=== PATIENT | female | born 1955 | race Caucasian/White ===

== ENCOUNTER 2019-02-09 11:59 | Outpatient (REF) | payer MEDICARE, BC, SELFPAY | END 2019-02-09 12:19 | LOC: NCHCN 11:59 | PROVIDERS: PCP Physician Assistant; Visit Provider Nurse Practitioner Family | DX: R30.0 Dysuria (principal) | CPT/HCPCS: 87077; 87086; 87186 ==

== ENCOUNTER 2020-04-21 13:47 | Outpatient (REF) | payer MEDICARE, BC, SELFPAY ==
[2020-04-21 19:46] LABS: HCT 42.9 % (36.0-46.0); HGB 14.4 g/dL (12.0-15.5); Mean Corp. HGB Concentration 33.6 g/dL (32.0-36.0); Mean Corpuscular Hemoglobin 28.8 pg (27.0-33.0); Mean Corpuscular Volume 85.8 fL (80-95); Mean Platelet Volume 10.3 fL (8.0-11.0); Platelet Count 277 x1000/uL (130-400); White Blood Cell Count 5.88 k/cumm (4.4-10.8)
[2020-04-21 20:18] LABS: ALT 38 U/L (14-59); Anion Gap 9.9 mmol/L (3-11); BUN 14 mg/dL (7-18); CO2 27.1 mmol/L (21.0-32.0); CREATININE 0.81 mg/dL (0.55-1.02); Calcium 9.4 mg/dL (8.5-10.1); Chloride 102 mmol/L (98-107); Glucose 106 mg/dL (74-106); LDL CHOLESTEROL 157 mg/dL (<100); Sodium 139 mmol/L (136-145)
== END 2020-04-21 14:07 ==
LOC: NCHCN 13:47
PROVIDERS: PCP Physician Assistant; Visit Provider Internal Medicine
DX: I10 Essential (primary) hypertension (principal); E66.9 Obesity, unspecified
CPT/HCPCS: 80048; 83721; 85027; 84460

== ENCOUNTER 2021-01-02 10:19 | Outpatient (REF) | payer MEDICARE, BC, SELFPAY ==
[2021-01-02 15:49] LABS: Hemoglobin A1C 5.9 % (<5.7)
== END 2021-01-02 10:20 | disposition home or self-care (01) ==
LOC: NCHCN 10:19
PROVIDERS: PCP Physician Assistant; Visit Provider Internal Medicine
DX: R73.03 Prediabetes (principal)
CPT/HCPCS: 83036

== ENCOUNTER 2021-04-07 15:23 | Outpatient (REF) | payer MEDICARE, BC, SELFPAY ==
[2021-04-07 19:04] LABS: ALT 34 U/L (14-59); Anion Gap 11.4 mmol/L (3-11); BUN 13 mg/dL (7-18); CO2 26.6 mmol/L (21.0-32.0); CREATININE 0.7 mg/dL (0.55-1.02); Calcium 9.4 mg/dL (8.5-10.1); Calculated LDL 108 mg/dL (<100); Chloride 102 mmol/L (98-107); Cholesterol 231 mg/dL (<200); Glucose 97 mg/dL (74-106); HDL Cholesterol 83 mg/dL (40-60); Potassium 4.1 mmol/L (3.5-5.1); Sodium 140 mmol/L (136-145); TSH 1.08 uIU/mL (0.36-3.74); Triglyceride 203 mg/dL (<150)
== END 2021-04-07 15:24 | disposition home or self-care (01) ==
LOC: NCHCN 15:23
PROVIDERS: PCP Physician Assistant; Visit Provider Internal Medicine
DX: I10 Essential (primary) hypertension (principal); R73.03 Prediabetes; E66.9 Obesity, unspecified
CPT/HCPCS: 80048; 80061; 84443; 84460

== ENCOUNTER 2021-08-09 09:31 | Outpatient (REF) | payer MEDICARE, BC, SELFPAY ==
[2021-08-11 14:23] LABS: COVID-19 RT-PCR UVMMC Result Negative (Negative)
== END 2021-08-09 09:32 | disposition home or self-care (01) ==
LOC: NCHCN 09:31
PROVIDERS: PCP Physician Assistant; Visit Provider Internal Medicine
DX: Z20.822 Contact with and (suspected) exposure to COVID-19 (principal)
CPT/HCPCS: U0003

== ENCOUNTER 2022-02-16 12:12 | Outpatient (REF) | payer OTHER, SELFPAY | END 2022-02-16 12:13 | disposition home or self-care (01) | LOC: NCHCN 12:12 | PROVIDERS: PCP Physician Assistant; Visit Provider Physician Assistant | DX: R35.0 Frequency of micturition (principal) | CPT/HCPCS: 87077; 87086; 87186 ==

== ENCOUNTER 2023-07-11 17:53 | Outpatient (REF) | payer OTHER, SELFPAY ==
[2023-07-11 20:10] LABS: ALT 37 U/L (14-59); AST 19 U/L (15-37); Albumin 4.1 g/dL (3.4-5.0); Alkaline Phosphatase 89 U/L (46-116); Anion Gap 12.2 mmol/L (3-11); BUN 12 mg/dL (7-18); Bilirubin, Total 0.4 mg/dL (0.2-1.0); CO2 22.8 mmol/L (21.0-32.0); CREATININE 0.8 mg/dL (0.55-1.02); Calcium 9.6 mg/dL (8.5-10.1); Chloride 101 mmol/L (98-107); Estimated GFR 79.71 (mL/min/1.73m2); Glucose 116 mg/dL (74-106); LDL CHOLESTEROL 118 mg/dL (<100); Potassium 3.8 mmol/L (3.5-5.1); Sodium 136 mmol/L (136-145); Total Protein 7.7 g/dL (6.4-8.2)
== END 2023-07-11 17:54 | disposition home or self-care (01) ==
LOC: NCHCN 17:53
PROVIDERS: PCP Physician Assistant; Visit Provider Physician Assistant
DX: E78.5 Hyperlipidemia, unspecified (principal); I10 Essential (primary) hypertension; R73.03 Prediabetes
CPT/HCPCS: 80053; 83721

== ENCOUNTER 2024-08-21 09:17 | Outpatient (REF) | payer OTHER, SELFPAY ==
--- OUTSIDE RECORDS SUMMARY | 2024-08-21 09:19 | XMS_ITS | Encounter Summary ---
Author Organization [facility] [place] [address] Care Team Providers Care Rocket Propellant Plant Supervisor Name Role Phone Misael Borges Primary Care Provider [phone] Reason for Visit * Reason Comments Annual Exam Encounter Details Date Type Department Care Team (Late st Contact Info) Description 11/23/2016 4:00 PM EST Office Visit Dermatology at [address] [phone] Avery Thacker MD [address] [facility] [place] [address] History of malignant melanoma; Nevus; Seborrheic keratosis Social History Tobacco Use Types Packs/Day Years Used Date Smoking Tobacco: Former Sex and Gender Information Value Date Recorded Sex Assigned at Not on file Gender Identity Not on file Sexual Orientation Not on file documented as of this encounter Progress Notes * Avery Thacker MD - 11/23/2016 4:00 PM EST PROBLEM: 1. F/u for yearly skin check up. 2. History of malignant melanoma, 0.32 mm Breslow depth, right upper back January 2006. 3. History of living in [place] for a number years with marked sun exposure history. Camille follows up and doing well. She is concerned about a lesion that was on her left upper arm, but now has fallen off. It was very dark and that concerned her. Physical examination reveals a pleasant, now 61-year-old woman who has no residual lesion on the left upper arm, who probably had a seborrheic keratosis, which has since desquamated. Examination of the face, the neck, the chest, the back, the hands and forearms, thighs and the calves, is benign. There is no evidence of any malignant lesions. A/P: 1. History of malignant melanoma right upper back January 2006, 0.32 mm Breslow depth. a. Patient congratulated about benign examination today. b. Recommended I continue seeing her on a yearly basis. c. Continue sun avoidance precautions. CC: Misael Borges PA-C. documented in this encounter Plan of Treatment Upcoming Encounters Date Type Department Care Team (Late st Contact Info) Description 08/10/2025 10:45 AM EST Office Visit Dermatology at [place] [address] [place] [address] Avery Thacker MD [address] [facility] [place] [address] documented as of this encounter Visit Diagnoses Diagnosis History of malignant melanoma Personal history of malignant melanoma of skin Nevus Benign neoplasm of skin, site unspecified Seborrheic keratosis Other seborrheic keratosis documented in this encounter Care Teams Rocket Propellant Plant Supervisor Relationship Specialty Start Date End Date Misael Borges PA [address] [place] [phone] PCP - General 04/04/15 11/28/17 documented as of this encounter
--- OUTSIDE RECORDS SUMMARY | 2024-08-21 09:19 | XMS_ITS | Encounter Summary ---
Author Organization [facility] [place] [address] Care Team Providers Care Paste Maker Name Role Phone Lazarus Washington MD Primary Care Provider [phone] Encounter Details Date Type Department Care Team (Late st Contact Info) Description 01/28/2006 Orders Only Dermatology at [address] [phone] Avery Thacker MD [address] [place] [address], [facility] [place] [address] Social History Tobacco Use Types Packs/Day Years Used Date Smoking Tobacco: Never Assessed Sex and Gender Information Value Date Recorded Sex Assigned at Not on file Gender Identity Not on file Sexual Orientation Not on file documented as of this encounter Plan of Treatment Upcoming Encounters Date Type Department Care Team (Late st Contact Info) Description 08/10/2025 10:45 AM EST Office Visit Dermatology at [address] [phone] Avery Thacker MD [address] [place] [address], [facility] [place] [address] documented as of this encounter Procedures Procedure Name Priority Date/Time Associated Diagnosis Comments SURGICAL PATHOLOGY REPORT Routine 01/28/2006 6:09 PM EDT documented in this encounter Results * Surgical Pathology Report (01/28/2006 6:09 PM EDT) Surgical Pathology Report [id number] ? Location: The signing pathologist has (i) examined the relevant preparation(s) for the specimen(s) and (ii) rendered or confirmed the diagnosis(es). . ?Pathology Surgical Pathology Final Report Clinical Information Specimen Submitted: A - (R) upper back excision. Clinical History: Atypical Nevus. Clinical Diagnosis: Atypical Nevus R/O MM Gross Description Labeled/Fixativ e: ? R upper back, formalin. Qty/Size/Weight : ?Single, 1.3 x 0.7 x 0.3 cm. Tissue Description: ?? Ellipse of garcia skin with a central 0.3 x 0.3-cm ?ovoid, symmetrical, garcia-brown macule. Sections/Proces sing: ??The specimen is inked and serially sectioned. ??The ?ends are submitted in (1); the remainder of the ?specimen submitted in (2). ??(T2) ??[facility] Microscopic Description Slides reviewed, microscopic description not recorded. Diagnosis Specimen: ? Skin of right upper back, excision. Histologic Type: ?Superficial spreading melanoma Ulceration: ? Absent Depth of Invasion: ?0.32 mm Marc's Level: ?II Regression: ? Present Vascular Invasion: ?Not identified Perineural Invasion: ?Not identified Microscopic Satellites: Not identified Associated Nevus: ? Present Margins: Peripheral Margins: ? Negative (approx. 2 mm from the lesion). Deep Margin: ?Negative Pathologic TNM Codes: ?? pT1a pNx pMx. CR-0 02/01/06 AEP 02/01/06 Verified by: ? Patito Sanchez MD ?Dermatopathol ogist ?(Electronic Signature) The attending pathologist whose signature appears on this report has reviewed all diagnostic slides and has edited the gross and/or microscopic portion of the report in rendering the final pathologic diagnosis. Comment Dr. Tommy Castañeda and Dr. Carlos Ovalle also examined the case and concur with the interpretation. JACKIE BLACK 01/28/2006 6:09 PM EDT Avery Thacker MD PATHOLOGY/CYTOLOGY O RDERAANNA Performing Organization Address City/State/[facility] Co de Phone Number JACKIE BLACK documented in this encounter Visit Diagnoses Not on filedocumented in this encounter Care Teams Paste Maker Relationship Specialty Start Date End Date Lazarus Washington MD [address] [place] [phone] PCP - General General Internal Medicine 11/29/17 documented as of this encounter
--- OUTSIDE RECORDS SUMMARY | 2024-08-21 09:19 | XMS_ITS | Encounter Summary ---
Author Organization [facility] Address [facility] [place] [address] Care Team Providers Care Developing Machine Operator Name Role Phone Lazarus Washington MD Primary Care Provider [phone] Reason for Visit * Reason Comments Annual Exam Encounter Details Date Type Department Care Team (Late st Contact Info) Description 11/27/2019 11:15 AM EST Office Visit Dermatology at [address] [phone] Avery Thacker MD [address] [facility] [place] [address] History of malignant melanoma; Nevus; Seborrheic keratosis Social History Tobacco Use Types Packs/Day Years Used Date Smoking Tobacco: Former Smokeless Tobacco: Never Sex and Gender Information Value Date Recorded Sex Assigned at Not on file Gender Identity Not on file Sexual Orientation Not on file documented as of this encounter Progress Notes * Avery Thacker MD - 11/27/2019 11:15 AM EST Problem: 1. ??Follow-up for yearly skin checkup 2. ??History of malignant melanoma, 0.32 mm Breslow depth, right upper back, January 2006 3. ??History of living in [place] for a number of years with marked sun exposure history Camille follows up and has been doing well. She had he is here for another yearly skin checkup. Unfortunately's the site of biopsy on the left upper chest last years left a hypopigmented scar. It did come back as a benign area of actinically damaged skin, [facility] and lentigo. Physical examination reveals a pleasant 64-year-old woman who does have a hypopigmented scar on left upper anterior chest at the shave biopsy site from her last visit a year ago.. She has it is some irritated tags present around the base of her neck laterally left and right. There is no evidence ofrecurrent pigmentation at the right upper back at the site of her melanoma excision from January 2006. Segmentation of the face the neck the chest the back the hands informs thighs and calves soles of the feet is benign. She has a number of solar lentigos on the lateral cheeks and also darkly pigmented on the dorsal hands bilaterally Assessment and plan: History of malignant melanoma right upper back January 2006 1. No evidence of recurrence 2. Patient reassured 3. Return to clinic in a year for repeat check. Solar lentigo's facial 1. Recommend trial of Porcellana, hydroquinone 2% cream, apply on a daily basis to affected areas on dorsal hands and face. Combine with careful sun avoidance precautions. Acrochordons base of neck 1. Could consider LN2 application to the sites. Cc: Lazarus Washington MD documented in this encounter Plan of Treatment Upcoming Encounters Date Type Department Care Team (Late st Contact Info) Description 08/10/2025 10:45 AM EST Office Visit Dermatology at [place] [address] [place] [phone] Avery Thacker MD [address] [facility] [address] documented as of this encounter Visit Diagnoses Diagnosis History of malignant melanoma Personal history of malignant melanoma of skin Nevus Benign neoplasm of skin, site unspecified Seborrheic keratosis Other seborrheic keratosis documented in this encounter Care Teams Developing Machine Operator Relationship Specialty Start Date End Date Lazarus Washington MD [address] [place] [id number] PCP - General General Internal Medicine 11/29/17 documented as of this encounter
--- OUTSIDE RECORDS SUMMARY | 2024-08-21 09:19 | XMS_ITS | Encounter Summary ---
Author Organization [facility] [place] [address] Care Team Providers Care Rail Project Engineer Name Role Phone Lazarus Washington MD Primary Care Provider [phone] Reason for Visit * Reason Comments Follow-up Skin Check Encounter Details Date Type Department Care Team (Late st Contact Info) Description 11/25/2018 11:30 AM EST Office Visit Dermatology at [address] [place] [phone] Avery Thacker MD [address] [facility] [address] [place] [address] History of malignant melanoma; Nevus; Seborrheic keratosis Social History Tobacco Use Types Packs/Day Years Used Date Smoking Tobacco: Former Smokeless Tobacco: Never Sex and Gender Information Value Date Recorded Sex Assigned at Not on file Gender Identity Not on file Sexual Orientation Not on file documented as of this encounter Progress Notes * Avery Thacker MD - 11/25/2018 11:30 AM EST Problem: 1. Follow-up for yearly skin checkup 2. History of malignant melanoma, 0.32 mm Breslow depth, right upper back, January 2006 3. History of living in [place] for a number of years with market sun exposure history Camille follows very follows up and has been doing well. She is noted a new lesion on the left upper anterior presternal chest. Also she wonders about a spot on her left shoulder and her left cheek. Examination reveals seborrheic keratoses 1 left lateral shoulder and one on the left malar prominence. She has several solar lentigo's on the lateral cheeks. She has a 1.5 x 1.5 atypically pigmented patch on the left upper anterior chest which upon dermatoscopy appears suspicious for possible melanoma. Differential might also include a superficial nonmelanoma cutaneous malignancy. Otherwise examination of the face the neck the chest the back the hands the arms deforms the thighs and the calves is benign. Patient has no evidence of recurrent pigmentation and excellent healing at the site of her right upper back melanoma excision site. Assessment plan: Seborrheic keratoses left malar prominence left lateral shoulder normal 1. Could consider LN 2 treatment to the sites Atypically pigmented patch left upper anterior chest 1. To rule out malignant melanoma, site was anesthetized and then removed shave biopsy 2. Triple antibiotic ointment and bandage placed 3. Wound care instruction supplies given 4. Will notify patient breast biopsy results in 1 week. She knows it may be a need for reexcision if this is positive for melanoma. Solar lentigo's lateral cheeks 1. I recommended [id number] hydroquinone cream 2% applying on a twice daily basis to affectedsites. 2. Continue sun with precautions History of malignant melanoma 0.32 mm Breslow depth left upper back January 2006 1. No evidence recurrence 2. Patient reassured 3. Return to clinic in a year for repeat check. CC: Lazarus Washington MD documented in this encounter Plan of Treatment Upcoming Encounters Date Type Department Care Team (Late st Contact Info) Description 08/10/2025 10:45 AM EST Office Visit Dermatology at [place] [address] [place] [phone] Avery Thacker MD [address] [facility] [place] [address] documented as of this encounter Visit Diagnoses Diagnosis History of malignant melanoma Personal history of malignant melanoma of skin Nevus Benign neoplasm of skin, site unspecified Seborrheic keratosis Other seborrheic keratosis documented in this encounter Care Teams Rail Project Engineer Relationship Specialty Start Date End Date Lazarus Washington MD [address] [place] [phone] PCP - General General Internal Medicine 11/29/17 documented as of this encounter
--- OUTSIDE RECORDS SUMMARY | 2024-08-21 09:19 | XMS_ITS | Encounter Summary ---
Author Organization [place] [address] Care Team Providers Care Director Of Rehabilitative Services Name Role Phone Lazarus Washington MD Primary Care Provider [phone] Reason for Visit * Reason Comments Skin Check Encounter Details Date Type Department Care Team (Late st Contact Info) Description 06/20/2011 10:45 AM EDT Office Visit Dermatology [address] [place] [address] [address] [place] [address] Avery Thacker MD [address] [facility] [address], [place] [address] History of malignant melanoma (Primary Dx) Social History Tobacco Use Types Packs/Day Years Used Date Smoking Tobacco: Former Sex and Gender Information Value Date Recorded Sex Assigned at Not on file Gender Identity Not on file Sexual Orientation Not on file documented as of this encounter Progress Notes * Avery Thacker MD - 06/20/2011 11:14 AM EDT Problems: 1. Yearly skin checkup. 2. History of malignant melanoma, 0.32mm right upper back, 01/2006. 3. History of living in [place] for a number of years with marked sun exposure. Camille follows up and it has now been five years since her melanoma excision. She has been doing well. Misael Borges, her previous provider, left the area in January and now she is being followed by Dr. Washington. She had a good summer. She has had no new lesions of concern. Physical examination reveals a pleasant 56-year-old woman who has a moderate garcia. She only uses sunscreen for her face. She uses SPF-30 containing Eucerin Cream. Examination of the head, neck, chest, back, hands, arms, forearms, thighs and calves is benign. The examination of the soles of the feet and the toe web spaces is also benign. There is no evidence of recurrent melanoma on the right upper back excision site. Assessment & Plan: History of malignant melanoma, right upper back, 01/2006. a. Patient congratulated about benign examination today and her more than five year anniversary status post excision without recurrence. b. Recommended that the patient continue to be seen on a regular yearly basis I would be happy to see her back in one year for repeat check. c. Continue the use of Eucerin facial moisturizing cream SPF-30. Cc: Lazarus Washington MD documented in this encounter Plan of Treatment Upcoming Encounters Date Type Department Care Team (Late st Contact Info) Description 08/10/2025 10:45 AM EST Office Visit Dermatology at [place] [address] [facility] [place] [address] Avery Thacker MD [address] [facility] [address], [place] [address] documented as of this encounter Visit Diagnoses Diagnosis History of malignant melanoma- Primary Personal history of malignant melanoma of skin documented in this encounter Care Teams Director Of Rehabilitative Services Relationship Specialty Start Date End Date Lazarus Washington MD [address] [place] [phone] PCP - General 06/20/11 04/03/15 documented as of this encounter
--- OUTSIDE RECORDS SUMMARY | 2024-08-21 09:19 | XMS_ITS | Encounter Summary ---
Author Organization [facility] [place] [address] Care Team Providers Care General Assignment Reporter Name Role Phone Lazarus Washington MD Primary Care Provider [phone] Reason for Visit * Reason Comments Annual Exam Encounter Details Date Type Department Care Team (Late st Contact Info) Description 08/10/2024 10:45 AM EST Office Visit Dermatology at [address] [phone] Avery Thacker MD [address] [facility] [address] Seborrheic keratosis; History of malignant melanoma; Nevus Social History Tobacco Use Types Packs/Day Years Used Date Smoking Tobacco: Former Smokeless Tobacco: Never Sex and Gender Information Value Date Recorded Sex Assigned at Not on file Gender Identity Not on file Sexual Orientation Not on file documented as of this encounter Progress Notes * Avery Thacker MD - 08/10/2024 10:45 AM EST Problem: 1. Annual skin checkup 2. History of malignant melanoma, 0.32 mm Breslow depth, right upper back, January 2006 3. History of living in [place] for a number of years with marked sun exposure history Camille follows up for her yearly skin checkup. She has no lesions of concern today. She is looking forward to heading down to [place]. She tries to remember to use sunscreen. Physical examination reveals a pleasant 69-year-old woman who has a moderate garcia still left over from summer sun exposure. She has numerous solar lentigos and benign nevi present on the head and the neck the chest the back the hands arms arms thighs and calves. There is no evidence of any cutaneousmalignancies. It is very difficult to see the malignant melanoma scar site on the right upper back. There is no evidence of any recurrent or atypical pigmentation on the right upper back. Assessment plan: Benign skin examination 1. Patient was reassured about her benign skin examination today 2. Encouraged use of SPF 50-70 sunscreen when out of doors 3. Return to clinic in another year for repeat check. CC: Lazarus Washington MD documented in this encounter Plan of Treatment Upcoming Encounters Date Type Department Care Team (Late st Contact Info) Description 08/10/2025 10:45 AM EST Office Visit Dermatology at [place] [address] [place] [address] Avery Thacker MD [address] [facility] [place] [address] documented as of this encounter Visit Diagnoses Diagnosis Seborrheic keratosis Other seborrheic keratosis History of malignant melanoma Personal history of malignant melanoma of skin Nevus Benign neoplasm of skin, site unspecified documented in this encounter Care Teams General Assignment Reporter Relationship Specialty Start Date End Date Lazarus Washington MD [address] [place] [id number] PCP - General General Internal Medicine 11/29/17 documented as of this encounter
--- OUTSIDE RECORDS SUMMARY | 2024-08-21 09:19 | XMS_ITS | Encounter Summary ---
Author Organization [facility] Address [address] [place] [address] Care Team Providers Care Postdoctoral Research Fellow Name Role Phone Unavailable Primary Care Provider Unavailabl e Encounter Details Date Type Department Care Team (Late st Contact Info) Description 08/15/[address] [facility] conversion [address] [place] [address] Mauricio Stanley CNM Social History Tobacco Use Types Packs/Day Years Used Date Smoking Tobacco: Never Assessed Comments Unknown Sex and Gender Information Value Date Recorded Sex Assigned at Not on file Legal Sex Female 18:12 EST Gender Identity Not on file Sexual Orientation Not on file documented as of this encounter Plan of Treatment Not on file documented as of this encounter Procedures Procedure Name Priority Date/Time Associated Diagnosis Comments CYTOPATHOLOGY Routine 08/15/2001 0:00 EST documented in this encounter Results * CYTOPATHOLOGY (08/15/2001 0:00 EST) Pathology Report: CYTOPATHOLOGY REPORT Reports generated via electronic interface contain original data; however they are lacking the format of the original report. Caution should be taken when reading/interpreti ng unformatted reports. Name: ? CAMILLE SHINE ? Accession #: ? [id number] : ? 1955 (Age: 46) ??F ?Collect Date: ? 08/15/2001 Location: ? [facility] ? Receive Date: ? 08/18/2001 Provider: ?MAURICIO COLIN CNEdouard Copy to: ? Specimen/Source: ?ThinPrep Pap Test, Cervix/Endocervix Last Menstrual Period: ? 08/06/01 Hormonal/Contracep tive Status: ? Hormone Replacement Therapy ? SPECIMEN ADEQUACY ? Satisfactory for evaluation. GENERAL CATEGORIZATION ? Within Normal Limits ? Document reviewed and electronically signed by: ? Viktoria Flynn, SCT(ASCP) ? Report Date: ??08/22/2001 09:15 End of Report KELLIE BACON 08/15/2001 08/18/2001 us Mauricio Candemanolo [facility] ORDERABLES Final Resu lt [facility] [address] [place] [address] documented in this encounter Visit Diagnoses Not on filedocumented in this encounter
--- OUTSIDE RECORDS SUMMARY | 2024-08-21 09:19 | XMS_ITS | Clinical Summary ---
Author Organization [facility] Address [facility] [place] [address] Care Team Providers Care Social Service Technician Name Role Phone Lazarus Washington MD Primary Care Provider [phone] Allergies No known active allergies Medications Medication Sig Dispensed Refills Start Date End Date Status omeprazole (PRILOSEC) 20 mg Capsule, Delayed Release(E.C.) TAKE ONE CAPSULE BY MOUTH EVERY DAY 1 10/25/2016 Active amlodipine-benazepril (LOTREL) 10-20 mg Capsule 09/02/2017 Active sterile water Solution 10/17/2021 Ac tive FLUoxetine (PROzac) 20 mg Capsule Patient takes four tablets daily 02/01/2022 Active atorvastatin (Lipitor) 20 mg tablet Take 20 mg by mouth nightly. 06/15/2024 Active Active Problems Problem Noted Date Diagnosed Date Hypertension 02/09/2021 Gastroesophageal reflux 02/09/2021 Osteoarthritis of both knees 02/09/2021 Nevus 11/23/2016 Seborrheic keratosis 11/23/2016 H/O knee surgery 10/07/2016 History of melanoma 06/20/2011 Tinea versicolor Resolved Problems Problem Noted Date Diagnosed Date Resolved Date Malignant melanoma Overview (06/19/2011): 0.32mm, right upper back, 01/2006 Encounters Date Type Department Care Team Description 08/10/2024 10:45 AM EST Office Visit Dermatology at [address] [place] [address] Avery Thacker MD Seborrheic keratosis; History of malignant melanoma; Nevus 08/10/2024 Travel from Last 3 Months Social History Tobacco Use Types Packs/Day Years Used Date Smoking Tobacco: Former Smokeless Tobacco: Never Sex and Gender Information Value Date Recorded Sex Assigned at Not on file Gender Identity Not on file Sexual Orientation Not on file Plan of Treatment Upcoming Encounters Date Type Department Care Team (Late st Contact Info) Description 08/10/2025 10:45 AM EST Office Visit Dermatology at [place] [address] [place] [phone] Avery Thacker MD [address], [place] [address] Health Maintenance Due Date Last Done Comments CT Colonography 1955 Colonoscopy 1955 Colorectal Cancer Screening 1955 FIT DNA 1955 FIT 1955 Sigmoidoscopy (10 year) with FIT yearly 1955 Sigmoidoscopy 1955 Hepatitis C Screening 01/30/1972 Tetanus/Diphtheria/Pertussis Vaccines (1 - Tdap) 01/29 Breast Cancer Share Decision Needed 1994 Breast Cancer screening 1994 Zoster vaccine (1 of 2) 01/30/2004 Advance Directive 2009 Bone Density Scan 2019 Pneumoccocal Vaccine: 65+ (1 of 1 - PCV) 2019 Covid-19 Vaccine (1 - season) 2024 Influenza (Flu) vaccine (1 o f 1 - Influenza standard series) 06/07/2024 Care Teams Social Service Technician Relationship Specialty Start Date End Date Lazarus Washington MD [address] [place], [place] [address] PCP - General General Internal Medicine 11/29/17
--- OUTSIDE RECORDS SUMMARY | 2024-08-21 09:19 | XMS_ITS | Encounter Summary ---
Author Organization [facility] [place] [address] Care Team Providers Care Licensed Architect Name Role Phone Misael Borges Primary Care Provider [phone] Encounter Details Date Type Department Care Team (Late st Contact Info) Description 06/19/2011 [place] [address] Mehnaz Padgett RN Malignant melanoma Social History Tobacco Use Types Packs/Day Years [...] 10:45 AM EST Office Visit Dermatology at [address] [phone] Avery Thacker MD [address] [facility] [place] [address] documented as of this encounter Visit Diagnoses Diagnosis Malignant melanoma Melanoma of skin, site unspecified documented in this encounter Care Teams Licensed Architect Relationship Specialty Start Date End Date Misael Borges PA [address] [place] [address] PCP - General 08/29/10 06/19/11 documented as of this encounter
--- OUTSIDE RECORDS SUMMARY | 2024-08-21 09:19 | XMS_ITS | Encounter Summary ---
Author Organization [facility] Address [facility] [place] [address] Care Team Providers Care Boat Wrapper Name Role Phone Lazarus Washington MD Primary Care Provider [phone] Encounter Details Date Type Department Care Team (Latest Contact Info) Description 11/25/2018 9:46 PM EST - 11/25/2018 11:59 PM EST Hospital Encounter Laboratory [facility] [place] [address] Discharge Disposition: Home Social History Tobacco Use Types Packs/Day Years Used Date Smoking Tobacco: Former Smokeless Tobacco: Never Sex and Gender Information Value Date Recorded Sex Assigned at Not on file Gender Identity Not on file Sexual Orientation Not on file documented as of this encounter Medications at Time of Discharge Medication Sig Dispensed Refills Start Date End Date amlodipine-benazepril (LOTREL) 10-20 mg Capsule 09/02/2017 omeprazole (PRILOSEC) 20 mg Capsule, Delayed Release(E.C.) TAKE ONE CAPSULE BY MOUTH EVERY DAY 1 10/25/2016 aspirin 325 mg Tablet, Delayed Release (E.C.) take 1 tablet by mouth twice a day for 4 weeks 0 06/19/2018 02/09/2021 celecoxib (CELEBREX) 200 mg Capsule take 1 capsule by mouth once daily 0 06/19/2018 02/09/2021 morphine (MS CONTIN) 15 mg Tablet Sustained Release take 1 tablet by mouth every 12 hours for 3 days 0 06/19/2018 02/09/2021 oxyCODONE (ROXICODONE) 5 mg Tablet take 1 tablet by mouth at bedtime 0 07/14/2018 02/09/2021 amLODIPine (NORVASC) 10 mg Tablet TAKE ONE TABLET BY MOUTH EVERY DAY 3 10/01/2016 02/09/2021 traMADol (ULTRAM) 50 mg Tablet TAKE ONE TABLET BY MOUTH TWICE A DAY NEEDED FOR KNEE PAIN 0 11/12/2016 02/09/2021 documented as of this encounter Plan of Treatment Upcoming Encounters Date Type Department Care Team (Late st Contact Info) Description 08/10/2025 10:45 AM EST Office Visit Dermatology at [place] [address] [place] [address] Avery Thacker MD [address], [place] [address] documented as of this encounter Procedures Procedure Name Priority Date/Time Associated Diagnosis Comments SURGICAL PATHOLOGY REPORT Routine 11/25/2018 12:00 PM EST documented in this encounter Results * Surgical Pathology Report (11/25/2018 12:00 PM EST) Final Diagnosis [id number] ? Location: [facility] The signing pathologist has (i) examined the relevant preparation(s) for the specimen(s) and (ii) rendered or confirmed the diagnosis(es). . ?Surgical Pathology DIAGNOSIS A. Skin, left upper presternal chest, shave biopsy: - Subtle i ncrease in junctional melanocytes with focal atypia in association with lichenoid actinic keratosis and lentigo (see discussion) Electronically signed by: ??Sima Daugherty MD Verified: ??11/30/2018 ?Dermatopathologist Performed at: ??-[facility], [place], [place] DISCUSSION Sections shows overlapping features of an inflamed actinic keratosis and lentigo. Pigmented melanophages are noted within the superficial dermis. There is subtle increase in junctional melanocytes, including some atypical appearing epithelioid enlarged cells. However, confluent growth of melanocytes is not seen and the findings are not diagnostic of ?? melanoma in situ. Close clinical observation is advised with low-threshold for repeat sampling, if there is residual lesion or evidence of recurrence/regrowth. ADDITIONAL STUDIES A2, A3. ??Multiple step-leveled sections were reviewed. Immunohistochemistry Studies: Formalin-fixed, paraffin-embedded tissue sections are studied using the polymer technique with appropriate positive and negative controls. ?These IHC studies provide the pathologist with adjunctive diagnostic information. Antibody specificity has been verified by testing antibodies on a series of in-house tissues with known immunohistochemical performance characteristics. The clinical interpretation of any antibody positive staining or its absence is evaluated within the context of clinical presentation, morphology, histopathological criteria and other diagnostic tests. Block ? Antibody ?Result (Positive/Negative) A2, A3 ?? Melan-A ?Positive in junctional melanocytes This case was also reviewed by an additional intradepartmental dermatopathologist for consensus diagnosis. CLINICAL INFORMATION Specimen Submitted: A - Skin, L upper presternal chest, shave Clinical History and Diagnosis: Growing atypical 1.5 cm patch; MM, superficial BCCA/SCCA Referring Identifier: ?(not provided) SPECIMEN PROCESSING A - Labeled/Fixative: Patient demographics, formalin. Quantity/Size: ??Single, 1.7 x 1.4 x 0.2 cm. Tissue Description: Irregular portion of mottled, garcia-yellow to garcia-brown skin. Sections/Processing: Inked, serially sectioned and entirely submitted in 3 cassettes as follows: ? A1: ??Tips ? A2-A3: ??Body . SPECIMEN PROCESSING ??ejr 11/30/2018 3:53 PM EST [facility] SPECIMEN FROM SKIN / Unknown 11/25/2018 12:00 PM EST 11/25/2018 12:00 PM EST Avery Thacker MD PATHOLOGY/CYTOLOGY O RDERABLES [facility] [place] [address] documented in this encounter Visit Diagnoses Not on filedocumented in this encounter Care Teams Boat Wrapper Relationship Specialty Start Date End Date Lazarus Washington MD [address] [place] [address] PCP - General General Internal Medicine 11/29/17 documented as of this encounter
--- OUTSIDE RECORDS SUMMARY | 2024-08-21 09:19 | XMS_ITS | Encounter Summary ---
Author Organization [facility] Address [address] [place] [address] Care Team Providers Care Ultrasonic Cleaner Name Role Phone Unavailable Primary Care Provider Unavailabl e Encounter Details Date Type Department Care Team (Late st Contact Info) Description 07/17/2000 Results Only [facility] conversion [address] [place] [address] Mauricio Shaw CNM Social History Tobacco Use Types Packs/Day [...] Priority Date/Time Associated Diagnosis Comments CYTOPATHOLOGY Routine 07/17/2000 0:00 EDT documented in this encounter Results * CYTOPATHOLOGY (07/17/2000 0:00 EDT) Pathology Report: CYTOPATHOLOGY REPORT Reports generated via electronic interface contain original data; however they are lacking the format of the original report. Caution should be taken when reading/interpreti ng unformatted reports. Name: ? CAMILLE SHINE ? Accession #: ? [id number] : ? 1955 (Age: 45) ??F ?Collect Date: ? 07/17/2000 Location: ? [facility] ? Receive Date: ? 07/19/2000 Provider: ?MAURICIO SHAW CNM Copy to: ? Specimen/Source: ?ThinPrep Pap Test, Cervix/Endocervix Last Menstrual Period: ? 07/08/00 Hormonal/Contracep tive Status: ? Yes Previous Gynecologic Pathology: ? ASC-US: , Paps WNL since ? SPECIMEN ADEQUACY ? Satisfactory for evaluation. GENERAL CATEGORIZATION ? Within Normal Limits ? Document reviewed and electronically signed by: ? Camille Arce, ??SCT(ASCP) ? Report Date: ??07/26/2000 11:01 End of Report KELLIE BACON 07/17/2000 07/19/2000 us Mauricio Jaden [facility] PATHOLOGY ORDERABLES Final Resu lt KELLIE BACON [address] [place] [address] documented in this encounter Visit Diagnoses Not on filedocumented in this encounter
--- OUTSIDE RECORDS SUMMARY | 2024-08-21 09:19 | XMS_ITS | Encounter Summary ---
Author Organization [facility] [place] [address] Care Team Providers Care Special Warfare Boat Operator Name Role Phone Misael Borges Primary Care Provider [phone] Reason for Visit * Reason Comments Skin Check Encounter Details Date Type Department Care Team (Late st Contact Info) Description 04/04/2015 2:30 PM EDT Office Visit Dermatology at [address] [place] [phone] Avery Thacker MD [address] [facility] [place] [address] History of malignant melanoma Discharge Disposition: Home Social History Tobacco Use Types Packs/Day Years Used Date Smoking Tobacco: Former Sex and Gender Information Value Date Recorded Sex Assigned at Not on file Gender Identity Not on file Sexual Orientation Not on file documented as of this encounter Patient Instructions * Patient Instructions* Kirstie Hernandez LPN - 04/04/2015 2:45 PM EDT Images from the original note were not included. [facility] Skin Cancer Prevention: After Your Visit Your Care Instructions Skin cancer is the abnormal growth of cells in the skin. It usually appears as a growth that changes in color, shape, or size. This can be a sore that does not heal or a change in a wart or a mole. Skin cancer is almost always curable when found early and treated. So it is important to see your doctor if you have any of these changes in your skin. Skin cancer is the most common type of cancer. It often appears on areas of the body that have beenexposed to the sun, such as the head, face, neck, back, chest, or shoulders. Follow-up care is a freedman part of your treatment and safety. Be sure to make and go to all appointments, and call your doctor if you are having problems. It's also a good idea to know your test resultsand keep a list of the medicines you take. How can you care for yourself at home? ?? Wear a wide-brimmed hat and long sleeves and pants if you are going to be outdoors for a long time. ?? Avoid the sun between 10 a.m. and 4 p.m., which is the peak time for UV rays. ?? Wear sunscreen on exposed skin. Make sure the sunscreen blocks ultraviolet rays (both UVA and UVB) and has a sun protection factor (SPF) of at least 15. Use it every day, even when it is cloudy. Some doctors may recommend a higher SPF, such as 30. ?? Do not use tanning booths or sunlamps. ?? Use lip balm or cream that has sun protection factor (SPF) to protect your lips from getting sunburned or getting cold sores. ?? Wear sunglasses that block UV rays. When should you call for help? Watch closely for changes in your health, and be sure to contact your doctor if: ?? You are concerned about any problem areas on your skin. ?? You notice a change in a mole or skin growth. For example: ?? It gets bigger. ?? It develops uneven borders. ?? It gets thicker, raised, or worn down. ?? It changes color. ?? It starts to bleed easily. Where can you learn more? Visit our health information library at [email or web address] You can also view health information on [employer], your personal patient account. Log in or sign up today. Enter P392 in the search box to learn more about Skin Cancer Prevention: After Your Visit. ?? [id number] [employer], [employer]. Care instructions adapted under license by [facility]. This care instruction is for use with your licensed healthcare professional. If you have questions about a medical condition or this instruction, always ask your healthcare professional. [employer] disclaims any warranty or liability for your use of this information. Content Version: 10.4.147966; Current as of: August 20, 2014 documented in this encounter Progress Notes * Avery Thacker MD - 04/04/2015 2:49 PM EDT Problem: 1. Belated yearly skin checkup. 2. History of malignant melanoma, 0.32 mm, right upper back 01/2006. 3. History of living in [place] for a number of years with marked sun exposure. Camille follows up and has been doing well. We have not seen her since 2010. Physical examination reveals a pleasant now 60-year-old woman who has a very well-healed scar minimally apparent on her right upper back. Examination of the head and the neck, the chest, the back, hands, arms, forearms, thighs, and calves is benign. She has no new lesions of concern. Assessment and Plan: History of malignant melanoma, right upper back, January 2006, 0.32 mm Breslow depth. a. Patient congratulated about benign examination today. b. Recommend I continue to see her on a regular yearly basis. c. Continue sun avoidance precautions. COPY: Lazarus Washington M.D. Misael Borges P.A.-C. documented in this encounter Plan of Treatment Upcoming Encounters Date Type Department Care Team (Late st Contact Info) Description 08/10/2025 10:45 AM EST Office Visit Dermatology at [address] [phone] Avery Thacker MD [address] [facility] [place] [address] documented as of this encounter Visit Diagnoses Diagnosis History of malignant melanoma Personal history of malignant melanoma of skin documented in this encounter Care Teams Special Warfare Boat Operator Relationship Specialty Start Date End Date Misael Borges PA [address] [place] [id number] PCP - General 04/04/15 11/28/17 documented as of this encounter
--- OUTSIDE RECORDS SUMMARY | 2024-08-21 09:19 | XMS_ITS | Encounter Summary ---
Author Organization [facility] [place] [address] Care Team Providers Care Reconsignment Clerk Name Role Phone Lazarus Washington MD Primary Care Provider [phone] Reason for Visit * Reason Comments Follow-up Encounter Details Date Type Department Care Team (Late st Contact Info) Description 11/20/2021 2:45 PM EST Office Visit Dermatology at [address] [phone] Avery Thacker MD [address] [place] [address] Seborrheic keratosis; Seborrheic keratosis, inflamed Social History Tobacco Use Types Packs/Day Years Used Date Smoking Tobacco: Former Smokeless Tobacco: Never Sex and Gender Information Value Date Recorded Sex Assigned at Not on file Gender Identity Not on file Sexual Orientation Not on file documented as of this encounter Progress Notes * Avery Thacker MD - 11/20/2021 2:45 PM EST Problem: 1. ??Skin lesion of concern, lucas lesion below neck 2. ??History of malignant melanoma, 0.32 mm Breslow depth, right upper back, January 2006 3. ??History of living in [place] for a number of years with marked??sun exposure history Camille follows up is now 66. She is here for an early annual visit because of a lesion below her neckthat is lucas in color and concerns her. Physical examination reveals a pleasant 66-year-old woman who has an early seborrheic keratosis with a stuck on waxy appearance present on the left anterior shoulder and on the right anterior shoulder she has a flatter peanut shaped 2 x 5 mm seborrheic keratosis. She has an excoriated Oscar K also onthe central base of her neck anteriorly. Otherwise discernible skin examination and examination of her back is benign. Assessment and plan: Irritated seborrheic keratoses 1. Patient reassured about his benign skin examination 2. LN 2 x 2 applied to each of 3 sites 3. Return to clinic in the spring for her regular skin checkup. Note is made of the right upper back melanoma excision site which appears to be well-healed withoutany evidence of recurrence. CC: Lazarus Washington MD documented in this encounter Plan of Treatment Upcoming Encounters Date Type Department Care Team (Late st Contact Info) Description 08/10/2025 10:45 AM EST Office Visit Dermatology at [place] [address] [place] [address] Avery Thacker MD [address] [facility] [place] [address] documented as of this encounter Visit Diagnoses Diagnosis Seborrheic keratosis Other seborrheic keratosis Seborrheic keratosis, inflamed Inflamed seborrheic keratosis documented in this encounter Care Teams Reconsignment Clerk Relationship Specialty Start Date End Date Lazarus Washington MD [address] [place] [id number] PCP - General General Internal Medicine 11/29/17 documented as of this encounter
--- OUTSIDE RECORDS SUMMARY | 2024-08-21 09:19 | XMS_ITS | Encounter Summary ---
Author Organization [facility] [place] [address] Care Team Providers Care Glass Curvature Gauger Name Role Phone Lazarus Washington MD Primary Care Provider [phone] Reason for Visit * Reason Comments Annual Exam Encounter Details Date Type Department Care Team (Late st Contact Info) Description 03/16/2022 3:30 PM EDT Office Visit Dermatology at [address] [phone] Avery Thacker MD [address] [place] [address] Seborrheic keratosis; Seborrheic keratosis, inflamed; History of malignant melanoma; Nevus Social History Tobacco Use Types Packs/Day Years Used Date Smoking Tobacco: Former Smokeless Tobacco: Never Sex and Gender Information Value Date Recorded Sex Assigned at Not on file Gender Identity Not on file Sexual Orientation Not on file documented as of this encounter Progress Notes * Avery Thacker MD - 03/16/2022 3:30 PM EDT Problem: 1. ??Skin lesion of concern, lucas lesion below neck 2. ??History of malignant melanoma, 0.32 mm Breslow depth, right upper back, January 2006 3. ??History of living in [place] for a number of years with marked??sun exposure history ?? Zuleika follows up and is now 67. She is back for a yearly skin checkup. I had seen her in November and removed some skin tags and seborrheic keratoses. This winter she has been about 5 weeks in [place]. Use SPF 15-30, and sometimes 50, but gets quite tanned. Physical examination reveals a pleasant 67-year-old woman who has a benign examination of the head and the neck the chest the back of the hands on forearms thighs and calves. There is no evidence of recurrence of her melanoma treatment site in the right upper back. She is a moderate garcia. She has number of seborrheic keratoses present today. The treatment sites about the base of her neck from her last visit have healed very nicely. Assessment and plan: Benign skin examination 1. Patient reassured about her benign skin examination 2. Encouraged use of SPF 50-70 sunscreen when out in the sun try to limit her tanning, given her history of melanoma 3. Patient expressed the desire to do so. 4. Return to clinic here will be in a year CC: Lazarus Washington MD documented in this encounter Plan of Treatment Upcoming Encounters Date Type Department Care Team (Late st Contact Info) Description 08/10/2025 10:45 AM EST Office Visit Dermatology at [place] [address] [place] [address] Avery Thacker MD [address] [facility], [place] [address] documented as of this encounter Visit Diagnoses Diagnosis Seborrheic keratosis Other seborrheic keratosis Seborrheic keratosis, inflamed Inflamed seborrheic keratosis History of malignant melanoma Personal history of malignant melanoma of skin Nevus Benign neoplasm of skin, site unspecified documented in this encounter Care Teams Glass Curvature Gauger Relationship Specialty Start Date End Date Lazarus Washington MD [address] [place] [address] PCP - General General Internal Medicine 11/29/17 documented as of this encounter
--- OUTSIDE RECORDS SUMMARY | 2024-08-21 09:19 | XMS_ITS | Encounter Summary ---
Author Organization [facility] Address [address] [place] [address] Care Team Providers Care Accounting Supervisor Name Role Phone Unavailable Primary Care Provider Unavailabl e Encounter Details Date Type Department Care Team (Late st Contact Info) Description 03/04/2018 Results Only [facility] [phone] [place] [address] Social History Tobacco Use Types Packs/Day Years [...] Procedure Name Priority Date/Time Associated Diagnosis Comments PAP TEST- RESULT ONLY Routine 03/04/2018 0:00 EDT documented in this encounter Results * PAP TEST- RESULT ONLY (03/04/2018 0:00 EDT) Pathology Report: CYTOPATHOLOGY REPORT Reports generated via electronic interface contain original data; however they are lacking the format of the original report. Caution should be taken when reading/interpreti ng unformatted reports. Name: ? CAMILLE SHINE ? Accession #: ? [id number] ? : ? 1955 (Age: 63) ??F ?Collect Date: ? 03/04/2018 ? Location: ? [facility] ? Receive Date: ? 03/05/2018 ? Provider: CARMEN MYERS CERAMIC WORKER Copy to: BREEZY ELIZONDO ? Final Report SPECIMEN ADEQUACY ? Satisfactory for Evaluation - transformation zone component present - scant squamous epithelial component, contamination present, possibly lubricant GENERAL CATEGORIZATION ? Negative for Intraepithelial Lesion or Malignancy ?? Last Menstrual Period: AGE 42 Specimen/Source: ??Pap Test, Cervix, ThinPrep Imaging System with manual evaluation Document reviewed and electronically signed by: ? MOHINDER Hurtado(ASCP) ? Report ??Date: 03/10/2018 13:44 HPV with Pap Test ? Date Ordered: ? 03/10/2018 ? Status: ?? Signed Out ?Date Complete: ? 03/12/2018 ? By: ??System Interface ? Date Reported: ? 03/12/2018 ? Interpretation RESULT: Negative for HPV. No E6 or E7 mRNA is detected from HPV types 16,18,31,33,35, 39,45,51,52,56,58, 59,66, and 68 by round kiln drawer mediated amplification. Comments Document reviewed and electronically signed by: ? System Interface ? Report date: 03/12/2018 By the signature above, the attending physician certifies that he/she has personally conducted a gross and/or microscopic examination of the described specimens and rendered or confirmed the above diagnosis. End of Report [facility] 03/04/2018 03/05/2018 us Carmen Myers CERAMIC WORKER PATHOLOGY ORDERABLES Final R esult [facility] [address] [place] [address] documented in this encounter Visit Diagnoses Not on filedocumented in this encounter
--- OUTSIDE RECORDS SUMMARY | 2024-08-21 09:19 | XMS_ITS | Encounter Summary ---
Author Organization [facility] [place] [address] Care Team Providers Care Slot Machine Repairer Name Role Phone Lazarus Washington MD Primary Care Provider [phone] Encounter Details Date Type Department Care Team (Late Contact Info) Description 04/20/2008 Orders Only Dermatology at [address] [phone] Avery Thacker MD [address] [place] [address], [facility] [place] [address] Social History Tobacco Use Types Packs/Day Years [...] 10:45 AM EST Office Visit Dermatology at [address] [phone] Avery Thacker MD [address] [place] [address], [facility] [place] [address] documented as of this encounter Procedures Procedure Name Priority Date/Time Associated Diagnosis Comments SURGICAL PATHOLOGY REPORT Routine 04/20/2008 5:16 PM EDT documented in this encounter Results * Surgical Pathology Report (04/20/2008 5:16 PM EDT) Surgical Pathology Report [id number] ? Location: [facility] The signing pathologist has (i) examined the relevant preparation(s) for the specimen(s) and (ii) rendered or confirmed the diagnosis(es). . ?Pathology Surgical Pathology Final Report Clinical Information Specimen Submitted: A - (R) lateral foot, 4-mm Punch Clinical History: New 4-mm pigmented macule in patient with H/O MM Clinical Diagnosis: Nevus Report to: Avery Thacker MD, III [facility] [place], [place] ??[address] Gross Description Labeled/Fixativ e: ? R lateral foot, formalin. Qty/Size/Weight : ?Single punch, 0.4 cm, with a smooth, garcia-brown skin ?surface. Sections/Proces sing: ??Bisected. ??(T1) ??aje/PPS Microscopic Description Slides reviewed, microscopic description not recorded. Diagnosis Right lateral foot, punch biopsy: ??Intracorneal hemorrhage (see Comment). CR-0 04/22/08 BOOKER 04/22/08 Verified by: ? Carlos Ovalle MD ?Dermatopathol ogist ?(Electronic Signature) The attending pathologist whose signature appears on this report has reviewed all diagnostic slides and has edited the gross and/or microscopic portion of the report in rendering the final pathologic diagnosis. Comment Multiple step levels reviewed. ??The etiology of the hemorrhage is not apparent in the specimen. ??No melanocytic lesion is identified. JACKIE BLACK 04/20/2008 5:16 PM EDT Avery Thacker MD PATHOLOGY/CYTOLOGY O RDERABLES JACKIE BLACK documented in this encounter Visit Diagnoses Not on filedocumented in this encounter Care Teams Slot Machine Repairer Relationship Specialty Start Date End Date Lazarus Washington MD [address] [place] [address] PCP - General General Internal Medicine 11/29/17 documented as of this encounter
--- OUTSIDE RECORDS SUMMARY | 2024-08-21 09:19 | XMS_ITS | Encounter Summary ---
Author Organization [facility] [place] [address] Care Team Providers Care Industrial Engineering Professor Name Role Phone Lazarus Washington MD Primary Care Provider [phone] Encounter Details Date Type Department Care Team (Latest Contact Info) Description 08/08/2023 Travel Social History Tobacco Use Types Packs/Day Years [...] 10:45 AM EST Office Visit Dermatology at [place] [address] [facility] [place] [phone] Avery Thacker MD [address] [facility] [address] documented as of this encounter Visit Diagnoses Not on filedocumented in this encounter Care Teams Industrial Engineering Professor Relationship Specialty Start Date End Date Lazarus Washington MD [address] [place] [address] PCP - General General Internal Medicine 11/29/17 documented as of this encounter
--- OUTSIDE RECORDS SUMMARY | 2024-08-21 09:19 | XMS_ITS | Encounter Summary ---
Author Organization [facility] Address [address] [place] [address] Care Team Providers Care Whiskey Filterer Name Role Phone Unavailable Primary Care Provider Unavailabl e Encounter Details Date Type Department Care Team (Late st Contact Info) Description 10/03/2009 Orders Only [facility] - [facility] ([facility]) [address] [place] [address] Chrissy Cherry MD [address] [place] [address] Social History Tobacco Use Types Packs/Day Years [...] Procedure Name Priority Date/Time Associated Diagnosis Comments HPV DETECTION, HIGH RISK TYPES Routine 10/03/2009 22:57 EST CYTOPATHOLOGY Routine 10/03/2009 0:00 EST documented in this encounter Results * HUMAN PAPILLOMA VIRUS DNA TEST (10/03/2009 22:57 EST) Specimen Description Cervix, ThinPrep vial [facility] Result This specimen had inadequate cells for cytologic interpretation. Negative results of HPV testing should be interpreted with caution. If clinicallyindic ated, please consider submission of an additional specimen. Negative for HPV types 16, 18, 31, 33, 35, 39, 45, 51, 52, 56, 58, 59, and 68. [facility] Report Status Final 10/12/2009 [facility] 10/03/2009 22:5 7 EST 10/10/2009 22:57 EST us Chrissy Cherry MD MICROBIOLOGY - GENERAL ORDERABL ES Final Result [facility] [address] [place] [address] * CYTOPATHOLOGY (10/03/2009 0:00 EST) Pathology Report: CYTOPATHOLOGY REPORT ? Reports generated via electronic interface contain original data; ? however they are lacking the format of the original report. ? Caution should be taken when reading/interpreti ng unformatted reports. ? Name: ? CAMILLE GALLO ? Accession #: ? [id number] ? : ? 1955 (Age: 54) ??F ?Collect Date: ? 10/03/2009 ? Location: ? [facility] ? Receive Date: ? 10/04/2009 ? Provider: ?CHRISSY DEIRDRE MD ? Copy to: ? Specimen/Source: ?Pap Test, Cervix/Endocervix, ThinPrep Imaging System ? with manual evaluation ? Last Menstrual Period: ? 1997 ? Other: ? HPVDX - HPV testing requested regardless of diagnosis on current ThinPrep Pap ?? test. ? SPECIMEN ADEQUACY ? Unsatisfactory for Evaluation ? - obscuring contamination, possibly lubricant, which precludes interpretation of 75% or more of the epithelial cells ? GENERAL CATEGORIZATION ? Specimen processed and examined, but unsatisfactory for evaluation of ? epithelial abnormality. ? Recommend repeat Pap test or further follow up, as clinically indicated. ? Document reviewed and electronically signed by: ? Romelia Imperial, CT(ASCP) ? Report Date: ??10/10/2009 08:33 ? End of Report ? [facility] 10/03/2009 10/04/2009 us Chrissy Cherry MD PATHOLOGY ORDERABLES Final Resu lt [facility] [address] [place] [address] documented in this encounter Visit Diagnoses Not on filedocumented in this encounter
--- OUTSIDE RECORDS SUMMARY | 2024-08-21 09:19 | XMS_ITS | Encounter Summary ---
Author Organization [facility] [place] [address] Care Team Providers Care Annealing Furnace Tender Name Role Phone Lazarus Washington MD Primary Care Provider [phone] Reason for Visit * Reason Comments Annual Exam Encounter Details Date Type Department Care Team (Late st Contact Info) Description 08/08/2023 10:15 AM EDT Office Visit Dermatology at [address] [place] [phone] Avery Thacker MD [address] [place] [address] Seborrheic keratosis; Seborrheic keratosis, inflamed; History of malignant melanoma; Nevus Social History Tobacco Use Types Packs/Day Years Used Date Smoking Tobacco: Former Smokeless Tobacco: Never Sex and Gender Information Value Date Recorded Sex Assigned at Not on file Gender Identity Not on file Sexual Orientation Not on file documented as of this encounter Progress Notes * Avery Thacker MD - 08/08/2023 10:15 AM EDT Problem: 1. Annual skin checkup 2. History of malignant melanoma, 0.32 mm Breslow depth, right upper back, January 2006 3. History of living in [place] for a number of years with marked sun exposure history Camille follows up for her yearly skin checkup. She has no lesions of concern today. She is looking forward to heading down to [place]. She tries to remember to use sunscreen. Physical examination reveals a pleasant 68-year-old woman who has a moderate garcia still [...] There is no evidence of any recurrent pigmented Tatian or atypical pigmentation on the right upper [...] 10:45 AM EST Office Visit Dermatology at [place] [address] [place] [address] Avery Thacker MD [address] [facility] [place] [address] documented as of this encounter Visit Diagnoses Diagnosis Seborrheic keratosis Other seborrheic keratosis Seborrheic keratosis, inflamed Inflamed seborrheic keratosis History of malignant melanoma Personal history of malignant melanoma of skin Nevus Benign neoplasm of skin, site unspecified documented in this encounter Care Teams Annealing Furnace Tender Relationship Specialty Start Date End Date Lazarus Washington MD [address] [place] [address] PCP - General General Internal Medicine 11/29/17 documented as of this encounter
--- OUTSIDE RECORDS SUMMARY | 2024-08-21 09:19 | XMS_ITS | Encounter Summary ---
Author Organization [facility] Address [address] [place] [address] Care Team Providers Care Metal Door Assembler Name Role Phone Unavailable Primary Care Provider Unavailabl e Encounter Details Date Type Department Care Team (Late st Contact Info) Description 08/10/2021 Lab Requisition [facility] Pathology & Laboratory Medicine - [address] [address] Outr Resulting Lab, Provider Social History Tobacco Use Types Packs/Day Years [...] Procedure Name Priority Date/Time Associated Diagnosis Comments ZZCOVID-19 TEST [facility] PCR Today 08/09/2021 9:00 EDT COVID-19 TESTING Routine 08/09/2021 9:00 EDT documented in this encounter Results * COVID-19 TEST [facility] PCR (08/09/2021 9:00 EDT) Swab ENTIRE NASOPHARYNX / Unknown 08/09/2021 9:00 EDT 08/10/2021 16:09 EDT us Provider Outr Resulting Lab MICROBIOLOGY - GENER AL ORDERABLES Final Result [facility] [address] [place] [address] * COVID-19 TESTING (08/09/2021 9:00 EDT) COVID-19 rt-PCR Result Negative Negative 08/11/2021 14:16 EDT [facility] Comment: This test has not been FDA cleared or approved. This test has been authorized by FDA under an EUA for use by authorized laboratories. This test has been authorized only for detection of nucleic acid from 2019-nCoV, not for any other viruses or pathogens. This test is only authorized for the duration of the declaration that circumstances exist justifying the authorization of emergency use of in vitro diagnostic tests for detection and/or diagnosis of 2019-nCoV under section 564(b)(1) of Act, 21 U.S.C ?? 360bbb-3(b) (1), unless the authorization is terminated or revoked sooner. Negative results do not preclude 2019-nCoV infection and should not be used as the sole basis for treatment or other patient management decisions. Negative results must be combined with clinical observations, patient history, and epidemiological information. This test was developed and its performance characteristics determined by [facility]. It has not been cleared or approved by the US Food and Drug Administration. FDA does not require this test to go through premarket FDA review. This test is used for clinical purposes. It should not be regarded as investigational or for research. This laboratory is certified under the Clinical Laboratory Improvement Amendments (CLIA) as qualified to perform high complexity clinical laboratory testing. This test is based on the CDC COVID-19 Emergency Use Authorization (EUA) assay, with minor modification as defined by the FDA Performed on the Skyonico 7 Pro RT-PCR System. Performing Lab [facility] 08/11/2021 14:16 EDT [facility] Swab 08/09/2021 9:00 EDT 08/10/2021 16:09 EDT us Provider Outr Resulting Lab MICROBIOLOGY - GENER AL ORDERABLES Final Result [facility] [address] [place] [address] documented in this encounter Visit Diagnoses Not on filedocumented in this encounter
--- OUTSIDE RECORDS SUMMARY | 2024-08-21 09:19 | XMS_ITS | Referral Summary ---
Author Organization [facility] Address [address] [place] [address] Care Team Providers Care Screen Writer Name Role Phone Unavailable Primary Care Provider Unavailabl e Social History Tobacco Use Types Packs/Day Years Used Date Smoking Tobacco: Never Assessed Comments Unknown Sex and Gender Information Value Date Recorded Sex Assigned at Not on file Legal Sex Female 18:12 EST Gender Identity Not on file Sexual Orientation Not on file Plan of Treatment Not on file
--- OUTSIDE RECORDS SUMMARY | 2024-08-21 09:19 | XMS_ITS | Clinical Summary ---
Author Organization [facility] Address [address] [place] [address] Care Team Providers Care Ramp Jockey Name Role Phone Unavailable Primary Care Provider Unavailabl e Social History Tobacco Use Types Packs/Day Years Used Date Smoking Tobacco: Never Assessed Comments Unknown Sex and Gender Information Value Date Recorded Sex Assigned at Not on file Legal Sex Female 18:12 EST Gender Identity Not on file Sexual Orientation Not on file Plan of Treatment Health Maintenance Due Date Last Done Comments Hepatitis C Screen 1955 Fall Risk Screening 2019 COVID-19 Vaccine ( season) 2024 RSV Immunization ( o r 60+ Years) (1 - 1-dose 75+ series) 2029
--- OUTSIDE RECORDS SUMMARY | 2024-08-21 09:19 | XMS_ITS | Encounter Summary ---
Author Organization [facility] [place] [address] Care Team Providers Care Roadside Mechanic Name Role Phone Lazarus Washington MD Primary Care Provider [phone] Reason for Visit * Reason Comments Annual Exam Encounter Details Date Type Department Care Team (Late st Contact Info) Description 11/29/2017 1:15 PM EST Office Visit Dermatology at [address] [phone] Avery Thacker MD [address] [facility] [place] [address] History of malignant melanoma; Nevus; Seborrheic keratosis Social History Tobacco Use Types Packs/Day Years Used Date Smoking Tobacco: Former Smokeless Tobacco: Never Sex and Gender Information Value Date Recorded Sex Assigned at Not on file Gender Identity Not on file Sexual Orientation Not on file documented as of this encounter Progress Notes * Avery Thacker MD - 11/29/2017 1:15 PM EST Problem: 1. Follow-up for yearly skin checkup 2. History of malignant melanoma, 0.32 mm Breslow depth, right upper back, January 2006 3. History of living in [place] for a number of years with market sun exposure history Camille follows up and has been doing well. She has not noted any new prescriptions of concern. She wonders about some growths on her arms and hands. Physical examination is a pleasant now 62-year-old woman who has no recurrent pigmentation on the right upper posterior arm at the melanoma excision site. She has numerous solar lentigo's present on the chest and back and dorsal hands. Fortunately careful examination of the head and the neck the chest the back the hands and forearms thighs and the calves is benign. Assessment plan: History of malignant melanoma, right upper back January 2006, 0.32 mm Breslowl depth 1. Patient congratulated on benign examination today 2. Recommend that we continue our checks on a yearly basis. 3. Continue to follow sun avoidance precautions. 4. Return to clinic 1 year Solar lentigo/seborrheic keratoses 1. Patient reassured about benign seborrheic keratoses Cc: Lazarus Washington MD documented in this encounter Plan of Treatment Upcoming Encounters Date Type Department Care Team (Late st Contact Info) Description 08/10/2025 10:45 AM EST Office Visit Dermatology at [place] [address] [place] [address] Avery Thacker MD [address] [facility], [facility] [place] [address] documented as of this encounter Visit Diagnoses Diagnosis History of malignant melanoma Personal history of malignant melanoma of skin Nevus Benign neoplasm of skin, site unspecified Seborrheic keratosis Other seborrheic keratosis documented in this encounter Care Teams Roadside Mechanic Relationship Specialty Start Date End Date Lazarus Washington MD [address] [place] [address] PCP - General General Internal Medicine 11/29/17 documented as of this encounter
--- OUTSIDE RECORDS SUMMARY | 2024-08-21 09:19 | XMS_ITS | Encounter Summary ---
Author Organization [facility] Address [facility] [address] Care Team Providers Care Pulling Machine Operator Name Role Phone Lazarus Washington MD Primary Care Provider + [phone] Encounter Details Date Type Department Care Team (Late st Contact Info) Description 11/26/2018 External Results [place] [phone] Provider, Scanning Social History Tobacco Use Types Packs/Day Years [...] 10:45 AM EST Office Visit Dermatology at [place] [address] [place] [phone] Avery Thacker MD [address] [facility] [place] [address] documented as of this encounter Procedures Procedure Name Priority Date/Time Associated Diagnosis Comments SURGICAL PATHOLOGY SCAN Routine 11/26/2018 documented in this encounter Results * Scan Doc: Surgical Pathology (11/26/2018) Historical Provider MD OSEI MGR SCAN EX T ORDR/RSLT documented in this encounter Visit Diagnoses Not on filedocumented in this encounter Care Teams Pulling Machine Operator Relationship Specialty Start Date End Date Lazarus Washington MD [address] [place], [place] [address] PCP - General General Internal Medicine 11/29/17 documented as of this encounter
--- OUTSIDE RECORDS SUMMARY | 2024-08-21 09:19 | XMS_ITS | Encounter Summary ---
Author Organization [facility] [place] [address] Care Team Providers Care Snack Bar Attendant Name Role Phone Lazarus Washington MD Primary Care Provider [phone] Encounter Details Date Type Department Care Team (Latest Contact Info) Description 08/10/2024 Travel Social History Tobacco Use Types Packs/Day [...] 10:45 AM EST Office Visit Dermatology at [place] [address] [facility] [place] [phone] Avery Thacker MD [address] [facility] [place] [address] documented as of this encounter Visit Diagnoses Not on filedocumented in this encounter Care Teams Snack Bar Attendant Relationship Specialty Start Date End Date Lazarus Washington MD [address] [place] [address] PCP - General General Internal Medicine 11/29/17 documented as of this encounter
--- OUTSIDE RECORDS SUMMARY | 2024-08-21 09:19 | XMS_ITS | Encounter Summary ---
Author Organization [facility] Address [address] [place] [address] Care Team Providers Care Environmental Property Assessor Name Role Phone Unavailable Primary Care Provider Unavailabl e Encounter Details Date Type Department Care Team (Late st Contact Info) Description 08/07/2002 Results Only [facility] [address] [place] [address] Mauricio Shaw CNM Social History Tobacco Use [...] Priority Date/Time Associated Diagnosis Comments CYTOPATHOLOGY Routine 08/07/2002 0:00 EST documented in this encounter Results * CYTOPATHOLOGY (08/07/2002 0:00 EST) Pathology Report: CYTOPATHOLOGY REPORT Reports generated via electronic interface contain original data; however they are lacking the format of the original report. Caution should be taken when reading/interpreti ng unformatted reports. Name: ? CAMILLE SHINE ? Accession #: ? [id number] : ? 1955 (Age: 47) ??F ?Collect Date: ? 08/07/2002 Location: ? [facility] ? Receive Date: ? 08/10/2002 Provider: ?MAURICIO SHAW CNM Copy to: ? Specimen/Source: ?ThinPrep Pap Test, Cervix/Endocervix Last Menstrual Period: ? 06/02/02 Previous Gynecologic Pathology: ? ASC-US: Other: ? HPVA - HPV testing requested if ASC-US on the current ThinPrep Pap test. ? SPECIMEN ADEQUACY ? Satisfactory for Evaluation - transformation zone component present GENERAL CATEGORIZATION ? Negative for Intraepithelial Lesion or Malignancy ? Document reviewed and electronically signed by: ? Iván Wilson CT(ASCP) ? Report Date: ??08/13/2002 08:28 End of Report [facility] 08/07/2002 08/10/2002 us Mauricio Shaw CNM PATHOLOGY ORDERABLES Final Resu lt [facility] [address] [place] [address] documented in this encounter Visit Diagnoses Not on filedocumented in this encounter
--- OUTSIDE RECORDS SUMMARY | 2024-08-21 09:19 | XMS_ITS | Encounter Summary ---
Author Organization [facility] [place] [address] Care Team Providers Care Dye Jig Operator Name Role Phone Lazarus Washington MD Primary Care Provider + [phone] Reason for Visit * Reason Comments Skin Check annual, history charlie gnant melanoma Nail Problem left foot great toe Encounter Details Date Type Department Care Team (Late st Contact Info) Description 02/09/2021 10:45 AM EDT Office Visit Dermatology at [address] [place] [id number] Avery Thacker MD [address] [place] [address] [address] [place] [address] History of malignant melanoma; Nevus; Seborrheic keratosis Social History Tobacco Use Types Packs/Day Years Used Date Smoking Tobacco: Former Smokeless Tobacco: Never Sex and Gender Information Value Date Recorded Sex Assigned at Not on file Gender Identity Not on file Sexual Orientation Not on file documented as of this encounter Progress Notes * Avery Thacker MD - 02/09/2021 10:45 AM EDT Problem: 1. ??Follow-up for yearly skin checkup 2. ??History of malignant melanoma, 0.32 mm Breslow depth, right upper back, January 2006 3. ??History of living in [place] for a number of years with marked sun exposure history ?? Camille follows up for a 1 year check. She has been doing well. She will has not noted any new lesionsof concern. She does however have some new tinea unguium in the left hallux toenail. She is noted more and more solar lentigos on the dorsal hands and forearms. Physical examination reveals a pleasant 66-year-old woman who has subungual hyperkeratotic debris and the distal subungual nail plate on the left toe of the hallux, but she has benign examination of the head and the neck the chest the back the hands the arms of forearms the thighs and the calves. She has a clustering of solar lentigos of the dorsal hands bilaterally and a number also present overthe dorsal forearms and arms bilaterally. Assessment and plan: History of malignant melanoma right upper back January 2006 1. No evidence recurrence 2. Patient reassured 3. Continue our once yearly skin checkups Solar lentigos, 1. Patient reassured 2. Patient is aware that she can use the 2% hydroquinone cream for this as needed Tinea unguium, left hallux 1. Prescription given for 3% thymol in ethyl alcohol which she can apply on a twice daily basis forthe next 3 to 4 months to see in improvement. Dispense 30 mL with 2 refills. 2. Patient will take the handwritten prescription to [facility] pharmacy to drop itoff and arrange for payment. cc: Lazarus Washington MD documented in this encounter Plan of Treatment Upcoming Encounters Date Type Department Care Team (Late st Contact Info) Description 08/10/2025 10:45 AM EST Office Visit Dermatology at [address] [id number] Avery Thacker MD [address] [facility], [place] [address] documented as of this encounter Visit Diagnoses Diagnosis History of malignant melanoma Personal history of malignant melanoma of skin Nevus Benign neoplasm of skin, site unspecified Seborrheic keratosis Other seborrheic keratosis documented in this encounter Care Teams Dye Jig Operator Relationship Specialty Start Date End Date Lazarus Washington MD [address] [place] [id number] PCP - General General Internal Medicine 11/29/17 documented as of this encounter
[2024-08-21 19:39] LABS: ALT 29 U/L (14-59); AST 19 U/L (15-37); Albumin 4.1 g/dL (3.4-5.0); Alkaline Phosphatase 107 U/L (46-116); Anion Gap 9.4 mmol/L (3-11); BUN 10 mg/dL (7-18); Bilirubin, Total 0.83 mg/dL (0.2-1.0); CO2 26.6 mmol/L (21.0-32.0); CREATININE 0.8 mg/dL (0.55-1.02); Calcium 9.3 mg/dL (8.5-10.1); Chloride 103 mmol/L (98-107); Estimated GFR 79.22 (mL/min/1.73m2); Glucose 115 mg/dL (74-106); LDL CHOLESTEROL 92 mg/dL (<100); Potassium 4.2 mmol/L (3.5-5.1); Sodium 139 mmol/L (136-145); Total Protein 7.7 g/dL (6.4-8.2)
[2024-08-21 19:46] LABS: Hemoglobin A1C 5.8 % (<5.7)
== END 2024-08-21 09:18 | disposition home or self-care (01) ==
LOC: NCHCN 09:17
PROVIDERS: PCP Physician Assistant; Visit Provider Physician Assistant
DX: I10 Essential (primary) hypertension (principal); R73.03 Prediabetes
CPT/HCPCS: 80053; 83721; 83036; 84443

== ENCOUNTER 2025-09-16 12:23 | Outpatient (REF) | payer MEDICARE, SELFPAY ==
[2025-09-16 19:38] LABS: ALT 26 U/L (10-49); AST 20 U/L (<34); Albumin 4.6 g/dL (3.2-5.0); Alkaline Phosphatase 94 U/L (46-116); Anion Gap 10.5 mmol/L (3-11); BUN 12 mg/dL (9-23); Bilirubin, Total 0.6 mg/dL (0.2-1.2); CO2 24.5 mmol/L (20.0-31.0); Calcium 9.7 mg/dL (8.3-10.6); Chloride 104 mmol/L (98-107); Glucose 144 mg/dL (74-106); Potassium 4.0 mmol/L (3.5-5.1); Sodium 139 mmol/L (136-145); Total Protein 7.5 g/dL (5.7-8.2)
== END 2025-09-16 12:24 | disposition home or self-care (01) ==
LOC: NCHCN 12:23
PROVIDERS: PCP Physician Assistant; Visit Provider Physician Assistant
DX: I10 Essential (primary) hypertension (principal); E78.5 Hyperlipidemia, unspecified
CPT/HCPCS: 80053; 83721